=== PATIENT | female | born 1975 | race Caucasian/White ===

== ENCOUNTER → 2018-09-08 09:39 | Outpatient (CLI) | payer OTHER, MEDICAID, SELFPAY ==
[2018-09-08 10:58] LABS: Prothrombin Time 11.3 SECONDS (10.1-12.7)
[2018-09-08 11:00] LABS: Alanine Aminotransferase 135 IU/L (9-52); Albumin 4.7 g/dL (3.5-5.0); Albumin Globulin Ratio 1.3 (1.0-2.8); Alkaline Phosphatase 59 U/L (38-126); Aspartate Aminotransferase 114 IU/L (14-36); BUN Creatinine Ratio 22.5 (6-22); Bilirubin Total 0.7 mg/dL (0.2-1.3); Blood Urea Nitrogen 18 mg/dL (7-17); Calcium 10.1 mg/dL (8.4-10.2); Carbon Dioxide 29 mmol/L (22-32); Chloride 103 mmol/L (98-107); Estimated Glomerular Filt Rate > 60.0 mL/min (>60); Globulin 3.6 g/dL (1.7-4.1); Glucose 137 mg/dL (70-100); HEMOLYSIS < 15 (0-50); Potassium 4.3 mmol/L (3.4-5.1); Sodium 140 mmol/L (137-145); Total Protein 8.3 g/dL (6.3-8.2)
[2018-09-08 11:52] LABS: Vitamin D 25 Hydroxy (D3) 49.7 ng/mL (30.0-100.0)
[2018-09-11 23:25] LABS: 1 25 Dihydroxy Vitamin D 20 pg/mL (18-72)
[2018-09-12 10:55] LABS: Hepatitis A Antibody Total Nonreactive (Nonreactive)
[2018-09-12 12:12] LABS: Hepatitis B Surf Ab Qualitativ Nonreactive (Nonreactive)
== END ==
DX: B18.2 Chronic viral hepatitis C (principal)
CPT/HCPCS: 36415; 80053; 81596; 82306; 82652; 85610; 86706; 86708; 86803

== ENCOUNTER → 2019-05-29 08:56 | Outpatient (CLI) | payer OTHER, MEDICAID, SELFPAY ==
--- NOTE | 2019-05-29 | DI.US.S_ITS ---
PROCEDURE: US ABDOMEN COMPLETE INDICATIONS: CHRONIC VIRAL HEPATITIS C TECHNIQUE: Real-time scanning was performed of the abdominal and retroperitoneal organs, with image documentation. COMPARISON: [facility], US, ABDOMEN COMPLETE, 04/29/2006, 10:03. FINDINGS: Liver: Liver is normal in size and homogeneous in echotexture. Within the inferior right lobe, there is a simple appearing hepatic cyst measuring 1.0 x 0.7 1.2 cm Gallbladder: Gallbladder unremarkable. No sonographic Stover's sign Biliary ducts: Intrahepatic bile ducts are non-dilated. Extrahepatic bile duct caliber measures 7 mm. Normal is 6-7 mm or less in diameter, or 10 mm or less post-cholecystectomy. Pancreas: Visualized portions of the pancreas are sonographically normal. However the pancreatic tail is obscured by shadowing bowel gas Spleen: Spleen is normal in size and homogeneous in echotexture. Kidneys: Kidneys are normal in size and echotexture. Right kidney measures 10.2 cm long; left kidney measures 10.1 cm long. No hydronephrosis or nephrolithiasis. No solid masses. Aorta: Visualized aorta is normal in caliber at less than 3 cm. however the mid segment is not well visualized due to shadowing bowel gas Iliacs: Proximal common iliac arteries are normal in caliber at less than 2.5 cm. IVC: Intrahepatic inferior vena cava is patent. Miscellaneous: No free abdominal fluid. IMPRESSION: Simple appearing hepatic cyst. Otherwise unremarkable appearance of the liver. Normal appearance of the gallbladder Dictated by: Pablo Arellano M.D. on 05/29/2019 at 9:59 Approved by: Pablo Arellano M.D. on 05/29/2019 at 10:01
== END ==
PROVIDERS: Referring Provider Nurse Practitioner Family; Visit Provider Nurse Practitioner Family
DX: B18.2 Chronic viral hepatitis C (principal); K76.89 Other specified diseases of liver
CPT/HCPCS: 76700

== ENCOUNTER 2019-08-29 09:00 | Emergency (ER) | payer OTHER, MEDICAID, SELFPAY ==
[2019-08-29 09:13] VITALS: BP 127/69; PULSE 89; RESP 16; TEMP 37.7; O2SAT 100; BMI 29.8
--- NOTE | 2019-08-29 09:38 | ED.EXTPRO ---
HPI - Extremity Problem General Chief complaint: Extremity Problem,Nontraumatic Stated complaint: right shoulder pain intermittent x10 years Time Seen by Provider: 08/29/19 09:04 Source: patient Mode of arrival: Family Vehicle Limitations: no limitations History of Present Illness HPI Narrative: 44-year-old female here for evaluation of many years of right shoulder pain. No specific injury. Has tried modalities in the past to include ice and elevation and rest and anti-inflammatories without much improvement. Does not have a primary provider. She thought that given the state of the environment to include the COVID-19 crisis she felt that she should come in to get it evaluated ?in case something happens ?. She reports that she has constant pain however there are times when it is worse than others. Does not seem to be a positional issue. Does have some tingling down her right arm into her hand. Denies any neck pain. Related Data Home Medications Medication Instructions Recorded Confirmed methadone 10 mg/mL oral concentrate 15 mg PO Q4H 09/13/17 09/13/17 Previous Rx's Medication Instructions Recorded norethindrone (contraceptive) 0.35 0.35 mg PO DAILY #168 tab 09/13/17 mg tablet prednisone 40 mg PO DAILY 5 Days #10 tab 08/29/19 Allergies Allergy/AdvReac Type Severity Reaction Status Date / Time buprenorphine [From Suboxone] Allergy Verified 08/29/19 09:49 naloxone [From Suboxone] Allergy Verified 08/29/19 09:49 naproxen [From Aleve] Allergy Verified 08/29/19 09:49 promethazine [From Phenergan] AdvReac SKIN Verified 08/29/19 09:19 CRAWLING Review of Systems Constitutional Constitutional: Denies fever(s) Cardiovascular Cardiovascular: Denies chest pain Respiratory Respiratory: Denies cough Gastrointestinal Gastrointestinal: Denies abdominal pain Musculoskeletal Musculoskeletal: Reports tingling (Down right arm) Comments: Right shoulder pain Integumentary/Breasts Skin/Breast: Denies lesions and Denies rash Neurologic Neurologic: Reports tingling (Down right arm) Hematologic/Lymphatic Hematologic/Lymphatic: Denies easy bleeding and Denies easy bruising Patient History Medical History Heavy menstrual period (Chronic) Hepatitis (Chronic) Hepatitis C (Chronic) Irregular menstrual cycle (Chronic) Post traumatic stress disorder (PTSD) (Chronic ~2003) Small bowel tumor (Resolved ~09/2004) Surgical History (Updated 09/28/17 @ 22:10 by [place] Szymanski) Anesthesia (Resolved) Social History Smoking Status: Current every day smoker Smoking Status: Current every day smoker tobacco type: vaping alcohol intake frequency: 0-2 drinks per day Substance Use Type: former substance user and methamphetamine Exam Initial Vital Signs Initial Vital Signs: Vital Signs Temperature 99.9 F H 08/29/19 09:13 Pulse Rate 89 08/29/19 09:13 Respiratory Rate 16 08/29/19 09:13 Blood Pressure 127/69 08/29/19 09:13 Pulse Oximetry 100 08/29/19 09:13 Const General: cooperative, comfortable and well developed HENMT Head: normal to inspection and normocephalic Resp Effort & Inspection: normal respiratory effort Auscultation: clear to auscultation bilaterally Cardio Rate: regular rate Rhythm: regular rhythm Pulses: radial pulses present on the right Skin Lesions: no lesions Rashes: no rashes Neuro General: patient alert, patient awake and patient oriented x3 Sensory Exam: no sensory deficits noted (Patient reports no tingling to her right hand today) Extrem General: normal to inspection and capillary refill normal Other: Right wrist and right elbow unremarkable. I am not able to elicit any specific point tenderness with palpation of the right shoulder. Patient does have full range the right shoulder and she states it is difficult for her to pinpoint where the pain is. She states that is ?on the inside ?Neer test negative [place] test negative. Cross-arm test negative. Apprehension test negative. Impingement test negative. Spurling's test negative Course Orders Ordered: Discontinued Medications Ketorolac Tromethamine (Toradol) 30 mg IM NOW ONE Stop: 08/29/19 09:39 Last Admin: 08/29/19 09:53 Dose: 30 mg Documented by: WNITER Vital Signs Vital signs: Vital Signs - 8 hr 08/29/19 09:13 08/29/19 10:19 Temperature 99.9 F H Pulse Rate 89 81 Respiratory Rate 16 16 Blood Pressure 127/69 123/61 Pulse Oximetry 100 100 MDM - Extremity (Nontraumatic) MDM Narrative Medical decision making narrative: Low suspicion for bony injury. I feel we can hold on radiologic studies. This could potentially be a muscular issue however I am unable to elicit any particular pain with testing of rotator cuff her biceps or shoulder girdle muscles. This also very well could be a neurologic issue. Her Spurling test was negative however she does report tingling down right hand which could be impingement issues. Will treat the patient with Toradol. Also sent home with a very short course of some steroids. I the patient follow-up. She was given return precautions and follow-up instructions. She expressed understanding and agreement. Discharge Plan Departure Patient Disposition: Home Clinical Impression: Chronic pain in right shoulder Discharge Date/Time: 08/29/19 10:19 Instructions: DI for Shoulder Pain Activity Restrictions/Additional Instructions: I do recommend that you contact your primary provider to discuss further workup to include either a referral to see physical therapy or an MRI. Return to the emergency department for any new or worsening symptoms. Your prescription was electronically transmitted to [facility] in [place] Prescriptions: New prednisone 20 mg tablet 40 mg PO DAILY 5 Days Qty: 10 RF: 0 No Action methadone 10 mg/mL concentrate 15 mg PO Q4H RF: 0 norethindrone (contraceptive) [Ortho Micronor] 0.35 mg tablet 0.35 mg PO DAILY Qty: 168 RF: 2 Referrals: Sis Mccoy ARNP [Primary Care Provider] -
[2019-08-29] MEDS: KETOROLAC 60 MG/2 ML VIAL 30 MG IM (09:53)
[2019-08-29 10:19] VITALS: BP 123/61; PULSE 81; RESP 16; O2SAT 100
== END 2019-08-29 10:19 | disposition home or self-care (01) ==
PROVIDERS: Emergency Provider Emergency Medicine; PCP Nurse Practitioner Family
DX: M25.511 Pain in right shoulder (principal)
CPT/HCPCS: 96372; 99283; J1885

== ENCOUNTER → 2020-04-25 16:02 | Outpatient (CLI) | payer OTHER, MEDICAID, SELFPAY ==
--- NOTE | 2020-04-25 | DI.MG.S_ITS ---
BILATERAL DIGITAL SCREENING MAMMOGRAM 3D/2D WITH CAD: 04/25/2020 CLINICAL: Routine screening. Family history of breast cancer. Baseline exam. No prior exams were available for comparison. There are scattered fibroglandular elements in both breasts. Current study was also evaluated with a Computer Aided Detection (CAD) system. No significant masses, calcifications, or other findings are seen in either breast. IMPRESSION: NEGATIVE There is no mammographic evidence of malignancy. A 1 year screening mammogram is recommended. This exam was interpreted at Station ID: [id number]. NOTE: For mammograms, a report in lay terms will be sent to the patient. Approximately 15% of breast malignancies will not be visualized mammographically. In the management of a palpable breast mass, a negative mammogram must not discourage biopsy of a clinically suspicious lesion. Electronically Signed By: Dilshad ballesteros/yasmine:04/28/2020 07:09:19 letter sent: Normal Exam ACR BI-RADS Category 1: Negative [id number]
--- NOTE | 2020-04-25 | DI.US.S_ITS ---
PROCEDURE: US ABDOMEN COMPLETE INDICATIONS: HEPATITIS C TECHNIQUE: Real-time scanning was performed of the abdominal and retroperitoneal organs, with image documentation. COMPARISON: [facility], US, US ABDOMEN COMPLETE, 05/29/2019, 9:03. FINDINGS: Liver: There is a septated cyst seen on the right that measures up to 13 mm, which previously measured up to 12 mm. There is a newly identified 8 mm cyst as seen on the left. The liver demonstrates mildly prominent size. The liver demonstrates generalized moderately increased echogenicity. This decreases ultrasound sensitivity for detection of hepatic masses. The main portal vein demonstrates normal caliber and normal appearing, hepatopetal flow. Gallbladder: No findings of gallstones or sludge are seen. The gallbladder wall is not thickened, measuring 3 mm or less. No specific pericholecystic fluid is seen. The sonographic Stover sign is negative. Biliary ducts: Intrahepatic bile ducts are non-dilated. Extrahepatic bile duct caliber measures 5 mm. Normal is 6-7 mm or less in diameter, or 10 mm or less post-cholecystectomy. Pancreas: Visualized portions of the pancreas are sonographically normal. Spleen: Spleen is normal in size and homogeneous in echotexture. Kidneys: Kidneys are normal in size and echotexture. Right kidney measures 11 cm long; left kidney measures 12 cm long. No hydronephrosis or nephrolithiasis. No solid masses. Aorta: Visualized aorta is normal in caliber at less than 3 cm. Iliacs: Proximal common iliac arteries are normal in caliber at less than 2.5 cm. IVC: Intrahepatic inferior vena cava is patent. Miscellaneous: No free abdominal fluid. IMPRESSION: The liver demonstrates increased echogenicity. This finding is nonspecific, yet it is most commonly attributed to fatty infiltration. However, differential diagnosis includes cirrhosis and fibrosis in this patient with this given history. No suspicious liver masses are seen, although there is a septated 13 mm cyst seen on the right and a simple appearing 8 mm cyst within the left liver. Dictated by: Blayne Camargo M.D. on 04/25/2020 at 16:49 Approved by: Blayne Camargo M.D. on 04/25/2020 at 16:54
== END ==
PROVIDERS: PCP Nurse Practitioner Family; Referring Provider Nurse Practitioner Family; Visit Provider Nurse Practitioner Family
DX: Z12.31 Encounter for screening mammogram for malignant neoplasm of breast (principal); Z80.3 Family history of malignant neoplasm of breast; B19.20 Unspecified viral hepatitis C without hepatic coma; K76.89 Other specified diseases of liver
CPT/HCPCS: 76700; 77063; 77067

== ENCOUNTER → 2020-05-12 11:25 | Outpatient (CLI) | payer OTHER, MEDICAID, SELFPAY ==
--- NOTE | 2020-05-12 11:31 | DI.RAD.S_ITS ---
PROCEDURE: XR CERVICAL SPINE 2V OR 3V INDICATIONS: shoulder pain TECHNIQUE: 3 view(s) of the cervical spine were acquired. COMPARISON: None. FINDINGS: Bones: No fractures or dislocations to the T1 level. The lateral masses of C1 appear intact on the odontoid view. No suspicious bony lesions. Soft tissues: No prevertebral soft tissue swelling. IMPRESSION: There is mild midcervical degenerative disc height reduction at C4-5 and C5-6. No subluxation. No prior trauma found. Dictated by: John Goetz M.D. on 05/12/2020 at 15:08 Approved by: John Goetz M.D. on 05/12/2020 at 15:08
--- NOTE | 2020-05-12 11:31 | DI.RAD.S_ITS ---
PROCEDURE: XR SHOULDER RT MIN 2V INDICATIONS: shoulder pain TECHNIQUE: 3 views of the shoulder were acquired. COMPARISON: None. FINDINGS: Bones: No fractures or dislocations. No suspicious bony lesions. Visualized ribs appear intact. Soft tissues: No suspicious soft tissue calcifications. IMPRESSION: No trauma found. Dictated by: John Goetz M.D. on 05/12/2020 at 15:08 Approved by: oJhn Goetz M.D. on 05/12/2020 at 15:09
== END ==
PROVIDERS: PCP Nurse Practitioner Family; Referring Provider Nurse Practitioner Family; Visit Provider Nurse Practitioner Family
DX: M25.511 Pain in right shoulder (principal)
CPT/HCPCS: 72040; 73030

== ENCOUNTER 2021-06-08 15:27 | Emergency (ER) | payer OTHER, MEDICAID, SELFPAY ==
[2021-06-08] VITALS (8 sets, daily range): BP systolic 119–150; BP diastolic 59–96; PULSE 64–101; RESP 15; TEMP 36.1; O2SAT 98–100; BMI 30.9
--- NOTE | 2021-06-08 18:18 | ED.WOUNDLAC ---
HPI - Wound/Laceration General Chief Complaint: Wound/Laceration Stated Complaint: LEFT LEG WOUND INFECTED 3MONTHS Time Seen by Provider: 06/08/21 18:11 Source: patient Mode of arrival: Ambulatory History of Present Illness HPI narrative: 46-year-old female daily smoker with history of polysubstance abuse presents with a chief complaint of a recurrence of a left lower leg infection. She had initially been seen a few months ago and had incision and drainage and was placed on antibiotics and followed closely by her primary care provider. Her symptoms had improved, she states that initial wound was likely from cutting her skin while shaving. It came back a few days ago with pain, redness and some mild drainage. She denies any systemic findings such as fever, chills nor nausea or vomiting. Related Data Home Medications Medication Instructions Recorded Confirmed methadone 10 mg/mL oral concentrate 15 mg PO Q4H 09/13/17 09/13/17 Previous Rx's Medication Instructions Recorded norethindrone (contraceptive) 0.35 0.35 mg PO DAILY #168 tab 09/13/17 mg tablet (Ortho Micronor) doxycycline hyclate 100 mg tablet 100 mg PO BID #20 tab 06/08/21 Allergies Allergy/AdvReac Type Severity Reaction Status Date / Time buprenorphine [From Suboxone] Allergy Verified 06/08/21 15:30 naloxone [From Suboxone] Allergy Verified 06/08/21 15:30 naproxen [From Aleve] Allergy Verified 06/08/21 15:30 promethazine [From Phenergan] AdvReac SKIN Verified 06/08/21 15:30 CRAWLING Review of Systems Review of Systems Narrative: GENERAL: Denies chills, fatigue, malaise, fever, sweats. HEENT: Denies sinus pain, ear pain, sore throat, difficulty swallowing, dizziness. RESPIRATORY: Denies dyspnea, cough, wheezing, hemoptysis, sputum. CARDIOVASCULAR: Denies chest pain, palpitations, orthopnea, edema, GASTROINTESTINAL: Denies nausea, vomiting, abdominal pain, diarrhea, constipation, melena. : Denies dysuria, frequency, incontinence, hematuria, urinary retention. MUSCULOSKELETAL: denies weakness, joint pain, or bony pain SKIN: 2x2cm slightly raised, draining, painful lesion with surrounding erythema consistent with early abscess. Indurated, but no fluctuance. NEUROLOGIC: Denies weakness, headache, numbness, change in speech, confusion, seizures, incoordination. PSYCHIATRIC: No concerning psychosocial issues. 12 point review of systems is negative except for those stated above Patient History Medical History (Updated 06/08/21 @ 19:44 by Demetri Leo DO) Heavy menstrual period Hepatitis Hepatitis C Irregular menstrual cycle Post traumatic stress disorder (PTSD) (~2003) Small bowel tumor (~09/2004) Surgical History (Updated 09/28/17 @ 22:10 by [place] Szymanski) Anesthesia Social History Smoking Status: Current every day smoker Smoking Status: Current every day smoker tobacco type: vaping alcohol intake frequency: holidays/special occasions only Substance Use Type: former substance user, heroin and methamphetamine Exam Initial Vital Signs Initial Vital Signs: Vital Signs Temperature 97.0 F L 06/08/21 15:30 Pulse Rate 101 H 06/08/21 15:30 Respiratory Rate 15 06/08/21 15:30 Blood Pressure 141/78 H 06/08/21 15:30 Pulse Oximetry 99 06/08/21 15:30 Course Orders Ordered: ED Orders 06/08/21 18:37 XR tibia fibula LT 2V Stat 06/08/21 18:40 Wound Culture and Gram Stain Stat Discontinued Medications Doxycycline Hyclate (Doxycycline Hyclate 100 Mg Tablet) 100 mg PO NOW ONE Stop: 06/08/21 19:07 Last Admin: 06/08/21 19:56 Dose: 100 mg Documented by: SHE Vital Signs Vital signs: Vital Signs - 8 hr 06/08/21 15:30 06/08/21 17:48 06/08/21 18:00 Temperature 97.0 F L Pulse Rate 101 H 87 Respiratory Rate 15 Blood Pressure 141/78 H 150/96 H Pulse Oximetry 99 100 06/08/21 18:01 06/08/21 18:30 06/08/21 19:00 Temperature Pulse Rate 91 H 74 77 Respiratory Rate Blood Pressure 150/87 H 119/66 Pulse Oximetry 100 98 99 06/08/21 19:01 06/08/21 19:30 Temperature Pulse Rate 76 64 Respiratory Rate Blood Pressure 133/59 L 131/68 Pulse Oximetry 99 99 MDM - Wound/Laceration MDM Narrative Medical decision making narrative: Patient has a small wound with spontaneous drainage in left lateral lower leg. There is some surrounding erythema, there is no fluctuance or physical exam findings that would suggest incision and drainage is appropriate. She has no systemic findings. X-ray performed to rule out foreign body given her history of IV drug abuse. Return precautions discussed and questions answered to her apparent satisfaction Discharge Plan Departure Patient Disposition: Home Clinical Impression: Abscess of left leg Instructions: DI for Wound Infection Activity Restrictions/Additional Instructions: *You have been diagnosed with [left leg abscess] *What to do: *Please continue to take your regular medications as directed. [x ] New medication prescriptions sent to your pharmacy: [ [facility]] [ ] New medication written as a paper prescription [ ] No new medications given *Please follow up with your primary care provider in 2-3 days, call for an appointment. Let them know you were seen in the Emergency Department and that we ask that you be seen in follow up. We will electronically transmit a record of today's note if your PCP is in our system *If you do not have a primary care provider please contact the [facility] Resource line at [phone]. They will ask some questions about your medical history and help get you set up with a doctor in the community. *Return to Emergency Department if you should have any new, worsening or concerning symptoms, such as [fever greater than 101 F, shaking chills, worsening pain, persistent vomiting or other bothersome symptoms] Prescriptions: New doxycycline hyclate 100 mg tablet 100 mg PO BID Qty: 20 0RF No Action methadone 10 mg/mL concentrate 15 mg PO Q4H 0RF norethindrone (contraceptive) [Ortho Micronor] 0.35 mg tablet 0.35 mg PO DAILY Qty: 168 2RF Rx Instructions: start day 1 of menstrual cycle Referrals: Sis Mccoy ARNP [Primary Care Provider] -
--- NOTE | 2021-06-08 18:37 | DI.RAD.S_ITS ---
PROCEDURE: XR TIBIA FIBULA LT 2V INDICATIONS: Chronic wound, foreign body? TECHNIQUE: 2 views of the tibia and fibula were acquired. COMPARISON: None. FINDINGS: Bones: No fractures or dislocations. No suspicious bony lesions. Soft tissues: No radiopaque foreign body or other acute soft tissue finding. No suspicious soft tissue calcifications or masses. IMPRESSION: No radiopaque foreign body. No plain radiographic findings of osteomyelitis. Dictated by: Zach Gamboa M.D. on 06/08/2021 at 18:51 Approved by: Zach Gamboa M.D. on 06/08/2021 at 18:52
[2021-06-08] MEDS: DOXYCYCLINE HYCLATE 100 MG TABLET PO (19:56)
== END 2021-06-08 20:00 | disposition home or self-care (01) ==
PROVIDERS: Emergency Provider Emergency Medicine; PCP Nurse Practitioner Family
DX: L02.416 Cutaneous abscess of left lower limb (principal)
CPT/HCPCS: 73590; 87070; 87075; 87077; 87147; 87186; 87205; 99283

== ENCOUNTER → 2024-12-06 12:56 | Outpatient (CLI) | payer OTHER, SELFPAY ==
--- NOTE | 2024-12-06 12:59 | DI.MG.S_ITS ---
MM screening mammo BI: 12/06/2024. BI-RADS: 1 CLINICAL: 49-year old female for bilateral screening mammogram. Tyrer-Cuzick lifetime risk of 14.8%. Current reported family history of breast cancer: mother and sister. PRIOR EXAMS 04/25/2020. MAMMOGRAPHY TECHNIQUE: 2D and 3D (tomosynthesis) digital mammographic views obtained, with additional images as needed for full coverage. Current study was also evaluated with a Computer Aided Detection (CAD) system. DENSITY B. There are scattered areas of fibroglandular density. MAMMOGRAPHY FINDINGS Bilateral: No suspicious mass, asymmetry, microcalcification, or other abnormality seen. IMPRESSION: * No evidence of malignancy. RECOMMENDATIONS Bilateral * Annual screening mammography. OVERALL ASSESSMENT CATEGORY BI-RADS-1: Negative. The [employer] recommends annual screening mammography beginning at age 40 for women with average risk of breast cancer. ELECTRONICALLY SIGNED: Nguyen Oakley M.D. on 12/06/2024 at 04:57:58 PM PT Interpreting Station ID: [id number]
== END ==
PROVIDERS: PCP Nurse Practitioner Family; Referring Provider Nurse Practitioner Family; Visit Provider Nurse Practitioner Family
DX: Z12.31 Encounter for screening mammogram for malignant neoplasm of breast (principal); Z80.3 Family history of malignant neoplasm of breast
CPT/HCPCS: 77063; 77067